=== PATIENT | female | born 1990 | race Caucasian/White ===

== ENCOUNTER 2016-11-26 16:52 | Emergency (ER) | payer MEDICAID ==
[~2016-11-26] VITALS: Wt 72.9 kg
[~2016-11-26 16:52] MED LIST: PREN1TAB49 PO
[2016-11-26] MEDS ORDERED: AMO500 PO (17:11)
[2016-11-26] MEDS ORDERED: OFLO5DRO7 RIGHT EAR (17:11)
[2016-11-26] MEDS ORDERED: ACET500C5 PO (17:12)
[2016-11-26] MEDS ORDERED: NAPR-260 PO (17:12)
--- NOTE | 2016-11-26 17:35 | ERD ---
ER Documentation Chief Complaint Date/Time DATE: 11/26/16 TIME: 17:33 Chief Complaint RIGHT EAR PAIN HPI This is a 26-year-old female who presents the emergency department today complaining of right ear pain for the past 3 days. She has not taken any medication for the pain. Denies any fevers or chills, sore throat, cough, headache. ROS All systems reviewed and are negative except as per history of present illness. Medications Home Meds Active Scripts Naproxen* (Naprosyn*) 500 Mg Tablet, 500 MG PO BID Y for PAIN AND/OR INFLAMMATION, #30 TAB Prov:JUSTIN RODRIGUEZ-C 11/26/16 Acetaminophen* (Tylophen*) 500 Mg Capsule, 1 CAP PO Q6H Y for PAIN AND OR ELEVATED TEMP, #30 CAP Prov:JUSTIN RODRIGUEZC 11/26/16 Amoxicillin* (Amoxicillin*) 500 Mg Cap, 500 MG PO TID for 10 Days, CAP Prov:JUSTIN RODRIGUEZC 11/26/16 Ofloxacin Otic (Ofloxacin Otic) 5 Ml Drops, 5 DROP RIGHT EAR BID for 10 Days, # 1 BOTTLE Prov:JUSTIN RODRIGUEZC 11/26/16 Reported Medications Vits W-Ca,Fe,Fa(<1MG) () 1 Tab Tablet, 1 TAB PO DAILY, #1 07/24/11 Allergies Allergies: Coded Allergies: No Known Drug Allergies (Verified Allergy, Mild, 08/27/14) PMhx/Soc Hx Neurological Disorder: No Physical Exam Vitals Vital Signs Date Time Temp Pulse Resp B/P Pulse Ox O2 Delivery O2 Flow Rate FiO2 11/26/16 16:57 98.7 87 17 147/78 99 Physical Exam Const: NAD Head: Atraumatic Eyes: Normal Conjunctiva ENT: Right ear with TM erythema and drainage. Nontender mastoid. Left ear TM normal. Nose no drainage. Throat no erythema no exudate Neck: Full range of motion..~ No meningismus. Resp: Clear to auscultation bilaterally Cardio: Regular rate and rhythm, no murmurs Abd: Soft, non tender, non distended. Normal bowel sounds Skin: No petechiae or rashes Neur: Awake and alert Psych: Normal Mood and Affect Procedures/MDM This a 18-year-old female who presents to the emergency department today complaining of 3 days of right ear pain. On physical exam patient had some TM erythema as well as drainage from her right ear. Patient symptoms at this time was consistent with otitis media and otitis externa. I will give the patient a prescription for amoxicillin as well as ofloxacin drops. Patient is afebrile and otherwise well-appearing. She is nontender on her mastoid and of low suspicion for mastoiditis. I do not feel the patient requires imaging at this time. I have low suspicion for strep pharyngitis, peritonsillar abscess, retropharyngeal abscess, , PNA, sinusitis, abscess, meningitis, sepsis, or other acute infectious bacterial process. Patient was also given a prescription for Naprosyn and Tylenol. At this time the patient is stable for discharge and outpatient management. They should follow up with their PCP in the next 1-2. They may return to the emergency department sooner if symptoms persist or worsen. Patient understood and agreed with the plan. Departure Diagnosis: Primary Impression: Right ear pain Condition: Fair Patient Instructions: Otitis Externa (Child) [facility] Usted se callahan hecho un examen mdico de control que le indica que no est en royce condicin que requiera tratamiento urgente en el Departamento de Emergencia. Un estudio ms profundo y el tratamiento de colin condicin pueden esperar sin ningn riesgo hasta que usted sea atendida/o en el consultorio de colin mdico o royce cl lashawn. Es responsabilidad suya arreglar royce ilndsay para el seguimiento del vivienne. MANEJO DE CONDICIONES NO URGENTES EN EL FUTURO 1) Si usted tiene un mdico de atencin primaria: Usted debera llamar a colin mdico de atencin primaria antes de venir al departamento de emergencia. Despus de las horas de consultorio, colin doctor o colin asociado/a est disponible por telfono. El mdico o enfermero de christian en el servicio telefnico puede asesorarle por jennifer medio para atender el problema, o vivienne contrario se puede programar royce lindsay. 2) Si usted no tiene un mdico de atencin primaria: Llame al mdico o clnica de referencia que aparece abajo gina las horas de consultorio para hacer royce lindsay para que le vean. CLINICAS: [place] [id number] [phone] [facility] [phone] [address] [facility] [phone] [place] [phone] [place] [phone] [facility] [phone] [address] Additional Instructions: Llame al doctor MAANA y colton royce LINDSAY PARA DENTRO DE 1-2 VALENZUELA.Dgale a la secretaria que nosotros le instruimos hacer esta lindsay.Avise o llame si colin condicin se empeora antes de la lindsay. Regresa aqui si peor o no mejor. Use antibiotics as prescribed Take Naprosyn or Tylenol for pain JUSTIN RODRIGUEZ PA-C Nov 26, 2016 17:35
== END 2016-11-26 17:16 | disposition home or self-care (01) ==
LOC: E/R 16:52
DX: H92.01 Otalgia, right ear (principal)
CPT/HCPCS: 99283

== ENCOUNTER 2019-04-18 03:17 | Emergency (ER) | payer MEDICAID ==
[~2019-04-18] VITALS: Ht 152.4 cm; Wt 76.4 kg
[~2019-04-18 03:17] MED LIST changes: +ACET500C5 PO; +AMOX500C2 PO; +NAPR-985 PO; +OFLO5DRO7 RIGHT EAR
[2019-04-18 03:22] VITALS: BP 129/79; PULSE 82; RESP 16; Ht 152.4 cm; Wt 76.4 kg
[2019-04-18] MEDS ORDERED: IBUP-1542 PO (03:53)
[2019-04-18] MEDS ORDERED: AMOX500C2 PO (03:53)
--- NOTE | 2019-04-18 03:58 | ERD ---
ER Documentation Chief Complaint Chief Complaint Bilateral ear pain since yesterday HPI 28-year-old female with no reported past medical surgical history presents with complaint of bilateral ear pain since yesterday. States she has had worsening pain to bilateral ear ears reporting ear fullness. She otherwise denies fevers, chills, hearing loss, discharge from the ear, ringing of ear, or any other concerning symptoms. She reports no allergies to any medications. ROS All systems reviewed and are negative except as per history of present illness. Medications Home Meds Active Scripts Ibuprofen* (Motrin*) 600 Mg Tab, 600 MG PO Q6H PRN for PAIN AND OR ELEVATED TEMP, #30 TAB Prov:FAZAL IRIZARRY PA-C 04/18/19 Amoxicillin* (Amoxicillin*) 500 Mg Cap, 500 MG PO TID for 10 Days, CAP Prov:FAZAL IRIZARRY PA-C 04/18/19 Naproxen* (Naprosyn*) 500 Mg Tablet, 500 MG PO BID PRN for PAIN AND/OR INFLAMMATION, #30 TAB Prov:JUSTIN RODRIGUEZ PA-C 11/26/16 Acetaminophen* (Tylophen*) 500 Mg Capsule, 1 CAP PO Q6H PRN for PAIN AND OR ELEVATED TEMP, #30 CAP Prov:JUSTIN RODRIGUEZ PA-C 11/26/16 Amoxicillin* (Amoxicillin*) 500 Mg Cap, 500 MG PO TID for 10 Days, CAP Prov:JUSTIN RODRIGUEZ PA-C 11/26/16 Ofloxacin Otic (Ofloxacin Otic) 5 Ml Drops, 5 DROP RIGHT EAR BID for 10 Days, #1 BOTTLE Prov:JUSTIN RODRIGUEZ PA-C 11/26/16 Reported Medications Vits W-Ca,Fe,Fa(<1MG) () 1 Tab Tablet, 1 TAB PO DAILY, #1 07/24/11 Allergies Allergies: Coded Allergies: No Known Drug Allergies (Verified Allergy, Mild, 08/27/14) PMhx/Soc Medical and Surgical Hx: pt denies Medical Hx, pt denies Surgical Hx Hx Neurological Disorder: No Hx Alcohol Use: No Hx Substance Use: No Hx Tobacco Use: No Smoking Status: Never smoker FmHx Family History: No diabetes, No coronary disease, No other Physical Exam Vitals Vital Signs Date Temp Pulse Resp B/P (MAP) Pulse Ox O2 O2 Flow FiO2 Time Delivery Rate 04/18/19 98.8 82 16 129/79 99 03:22 (96) Physical Exam Const: No acute distress Head: Atraumatic Eyes: Normal Conjunctiva ENT: Normal External Ears, pain with pulling of tragus bilateral ears, external anal canal appearing normal, mild erythema and swelling most pronounced to right tympanic membrane. No bulging of bilateral TM, bilateral TMs intact Neck: Full range of motion. No meningismus. Resp: Clear to auscultation bilaterally Cardio: Regular rate and rhythm, no murmurs Abd: Soft, non tender, non distended. Normal bowel sounds Skin: No petechiae or rashes Back: No midline or flank tenderness Ext: No cyanosis, or edema Neur: Awake and alert Psych: Normal Mood and Affect Procedures/MDM Presents with ear pain, likely secondary to acute otitis media. No overt evidence of mastoiditis or malignant otitis externa. Low suspicion for intracranial extension. Pt non-toxic appearing, tolerating PO. Will discharge home with high dose amoxicillin, ibuprofen, and follow up with PMD. DISPOSITION PLAN: We discussed follow up with the patient's primary care doctor within 24 to 48 hours. Patient counseled regarding my diagnostic impression and care plan. Prior to discharge all questions answered. Pt agrees with treatment plan and understands strict return precautions. Precautionary instructions provided including instructions to return to the ER if not improving or for any worsening or changing symptoms or concerns. Disclaimer: Inadvertent spelling and grammatical errors are likely due to EHR/dictation software use and do not reflect on the overall quality of patient care. Also, please note that the electronic time recorded on this note does not necessarily reflect the actual time of the patient encounter. Departure Diagnosis: Primary Impression: Ear problem Condition: Stable Patient Instructions: Understanding Middle Ear Infections Additional Instructions: Call your primary care doctor TOMORROW for an appointment during the next 2-3 days.See the doctor sooner or return here if your condition worsens before your appointment time. FAZAL IRIZARRY PA-C Apr 18, 2019 03:58
== END 2019-04-18 04:17 | disposition home or self-care (01) ==
LOC: FTE 03:17
DX: H93.93 Unspecified disorder of ear, bilateral (principal)
CPT/HCPCS: 99283